=== PATIENT | female | born 1970 | race Caucasian/White ===

== ENCOUNTER → 2018-04-02 | Outpatient (CLI) | payer OTHER ==
[2018-04-02 12:51] LABS: CHOLESTEROL LEVEL 164 MG/DL (<200); CHOLESTEROL RISK RATIO 3.153 (<5); FREE T4 1.63 NG/DL (0.76-1.46); HDL CHOLESTEROL 52 MG/DL (>40); LDL CHOLESTEROL 86.8 MG/DL (<100); NON-HDL-C 112 MG/DL; THYROID STIMULATING HORMONE 0.421 uIU/ML (0.358-3.740); TRIGLYCERIDES LEVEL 126 MG/DL (<150)
== END ==
LOC: M WUC 08:02
DX: E03.9 Hypothyroidism, unspecified (principal)

== ENCOUNTER → 2018-07-09 | Outpatient (CLI) | payer OTHER | LOC: M SMT 14:07 | DX: S92.531A Displaced fracture of distal phalanx of right lesser toe(s), initial encounter for closed fracture (principal); J02.9 Acute pharyngitis, unspecified; X58.XXXA Exposure to other specified factors, initial encounter; Y92.9 Unspecified place or not applicable | CPT/HCPCS: 87077 ==

== ENCOUNTER → 2018-07-31 | Outpatient (REF) | LOC: M WHC 11:34 | DX: Z12.31 Encounter for screening mammogram for malignant neoplasm of breast (principal) ==

== ENCOUNTER → 2018-10-19 | Outpatient (CLI) | payer OTHER ==
[2018-10-19 14:38] LABS: THYROID STIMULATING HORMONE 0.061 uIU/ML (0.358-3.740)
[2018-10-19 14:38] LABS: FREE T4 1.64 NG/DL (0.76-1.46)
== END ==
LOC: M WUC 11:32
DX: E03.9 Hypothyroidism, unspecified (principal)
CPT/HCPCS: 84443

== ENCOUNTER → 2019-08-24 | Outpatient (REF) | payer BC | LOC: M LAB REF 16:58 | PROVIDERS: ATTEND Physician Assistant | DX: M54.5 Low back pain (principal) ==

== ENCOUNTER → 2019-09-20 | Outpatient (CLI) | payer BC ==
[2019-09-20 08:24] LABS: BASO % 0.6 % (0.0-1.0); EOS # 0.2 10^3/uL (0.0-0.5); EOS % 2.4 % (0.0-3.0); HEMATOCRIT 42.9 % (36.0-47.0); HEMOGLOBIN 13.6 g/dl (12.0-15.5); LYMPH # 1.9 10^3/uL (1.5-5.0); LYMPH % 30.1 % (24.0-44.0); MEAN CORPUSCULAR HEMOGLOBIN 30.6 pg (27.0-33.0); MEAN CORPUSCULAR HGB CONC 31.7 g/dl (32.0-36.5); MEAN CORPUSCULAR VOLUME 96.6 fl (80.0-96.0); MONO # 0.5 10^3/uL (0.0-0.8); MONO % 7.3 % (0.0-5.0); NEUTROPHILS # 3.8 10^3/uL (1.5-8.5); NEUTROPHILS % 59.3 % (36.0-66.0); PLATELET COUNT, AUTOMATED 134 10^3/uL (150-450); RED BLOOD COUNT 4.44 10^6/uL (4.00-5.40); WHITE BLOOD COUNT 6.3 10^3/uL (4.0-10.0)
[2019-09-20 09:05] LABS: ALBUMIN 3.5 GM/DL (3.2-5.2); ALT/SGPT 29 U/L (12-78); BILIRUBIN,TOTAL 0.6 MG/DL (0.2-1.0); BLOOD UREA NITROGEN 17 MG/DL (7-18); CARBON DIOXIDE LEVEL 26 MEQ/L (21-32); CHLORIDE LEVEL 109 MEQ/L (98-107); CHOLESTEROL LEVEL 182 MG/DL (<200); CHOLESTEROL RISK RATIO 2.303 (<5); CREATININE FOR GFR 0.98 MG/DL (0.55-1.30); FREE T4 1.15 NG/DL (0.76-1.46); GLOMERULAR FILTRATION RATE > 60.0 (>51); GLUCOSE, FASTING 92 MG/DL (70-100); HDL CHOLESTEROL 79 MG/DL (>40); LDL CHOLESTEROL 76 MG/DL (<100); NON-HDL-C 103 MG/DL; SODIUM LEVEL 142 MEQ/L (136-145); THYROID STIMULATING HORMONE 0.331 uIU/ML (0.358-3.740); TRIGLYCERIDES LEVEL 133 MG/DL (<150)
== END ==
LOC: M LAB 07:47
PROVIDERS: ATTEND Physician Assistant
DX: M54.5 Low back pain (principal)

== ENCOUNTER 2019-11-18 08:10 | Day surgery (SDC) | payer BC ==
[~2019-11-18] VITALS: Ht 160 cm; Wt 68.9 kg
[~2019-11-18 08:10] MED LIST changes: +LIDOCAINE 2% INJ 100 MG/5 ML SDV (FOR ANES.) As Ordered ONE; +NS 1,000 ML IV ONE; +PROPOFOL 200 MG/20 ML VIAL As Ordered ONE
[2019-11-18] MEDS ORDERED: PROPOFOL 200 MG/20 ML VIAL As Ordered ONE ×2 (09:33→09:45)
--- NOTE | 2019-11-18 10:00 | ROOR ---
Patient Name: Cristiana Sampson Procedure Date: 11/18/2019 9:24 AM Date of : 1970 Age: 49 Room: [facility] Gender: Female Note Status: Finalized Procedure: Colonoscopy Indications: Screening patient at increased risk: Family history of 1st-degree relative with colorectal cancer at age 60 years (or older) Providers: Edvin Proctor Jr, MD Referring MD: Martha NUNEZ DO Requesting Provider: Medicines: Propofol per Anesthesia Complications: No immediate complications. Procedure: Pre-Anesthesia Assessment: - Prior to the procedure, a History and Physical was performed, and patient medications and allergies were reviewed. The patient is competent. The risks and benefits of the procedure and the sedation options and risks were discussed with the patient. All questions were answered and informed consent was obtained. Patient identification and proposed procedure were verified by the physician and the nurse in the pre-procedure area and in the procedure room. Mental Status Examination: alert and oriented. Airway Examination: normal oropharyngeal airway and neck mobility. Respiratory Examination: clear to auscultation. CV Examination: normal. ASA Grade Assessment: II - A patient with mild systemic disease. After reviewing the risks and benefits, the patient was deemed in satisfactory condition to undergo the procedure. The anesthesia plan was to use moderate sedation / analgesia (conscious sedation). Immediately prior to administration of medications, the patient was re-assessed for adequacy to receive sedatives. The heart rate, respiratory rate, oxygen saturations, blood pressure, adequacy of pulmonary ventilation, and response to care were monitored throughout the procedure. The physical status of the patient was re-assessed after the procedure. The Colonoscope was introduced through the anus and advanced to the cecum, identified by appendiceal orifice and ileocecal valve. The colonoscopy was performed without difficulty. The patient tolerated the procedure well. The quality of the bowel preparation was adequate. Findings: The ascending colon, cecum, appendiceal orifice and ileocecal valve appeared normal. Four polyps were found in the rectum, descending colon and transverse colon. The polyps were diminutive in size. These polyps were removed with a hot snare. Resection was complete, but the polyp tissue was only partially retrieved. A small polyp was found in the sigmoid colon. The polyp was removed with a hot snare. Resection and retrieval were complete. Impression: - The ascending colon, cecum, appendiceal orifice and ileocecal valve are normal. - Four diminutive polyps in the rectum, in the descending colon and in the transverse colon, removed with a hot snare. Complete resection. Partial retrieval. - One small polyp in the sigmoid colon, removed with a hot snare. Resected and retrieved. Recommendation: - Discharge patient to home (ambulatory). - Repeat colonoscopy in 5 years for surveillance. Edvin Proctor MD Edvin Proctor Jr, MD 11/18/2019 10:00:08 AM Electronically signed by Edvin Proctor Jr, MD Number of Addenda: 0 Note Initiated On: 11/18/2019 9:24 AM Estimated Blood Loss: Estimated blood loss: none.
[2019-11-18 10:43] VITALS: BP 117/75
== END 2019-11-18 10:30 | disposition home or self-care (01) ==
LOC: M OPP 08:10
PROVIDERS: ATTEND Surgery
DX: Z12.11 Encounter for screening for malignant neoplasm of colon (principal); Z80.0 Family history of malignant neoplasm of digestive organs; K62.1 Rectal polyp; D12.4 Benign neoplasm of descending colon; D12.3 Benign neoplasm of transverse colon; D12.5 Benign neoplasm of sigmoid colon; F17.210 Nicotine dependence, cigarettes, uncomplicated; Z79.899 Other long term (current) drug therapy

== ENCOUNTER → 2019-11-18 | Outpatient (CLI) | payer BC ==
[~2019-11-18] MED LIST: ATOR40TA75 PO; CETI10TA4 PO; SYNT125T PO
--- NOTE | 2019-11-18 16:36 | REPMRS ---
Patient History The patient states she has not had a clinical breast exam in over a year. Family history of colorectal cancer at age 75 in father. Took estrogen for 10 years. Digital Woman Screen Mammo: November 18, 2019 - Exam #: [id number] Bilateral CC and MLO view(s) were taken. Technologist: Elsy Gilbert, Technologist Prior study comparison: July 31, 2018, bilateral digital woman screen mammo performed at [facility]. September 15, 2013, bilateral digital mammo screening bilat, performed at [place], [place]. September 09, 2012, bilateral digital mammo screening bilat, performed at [place], [place]. FINDINGS: There are scattered fibroglandular densities. There has been no change in the appearance of the mammogram from the prior studies. There is a mild amount of scattered fibroglandular density which is fairly symmetric. There is no interval development of dominant mass, architectural distortion, or grouped microcalcification suggestive of malignancy. 3-D tomosynthesis shows no additional findings. Assessment: BI-RADS/ACR category 1 mammogram. Negative Mammogram. Recommendation Routine screening mammogram of both breasts in 1 year (for women over age 40). This patient's Lifetime Breast Cancer Risk is estimated at 4.6 %. This mammogram was interpreted with the aid of an FDA-approved computer-aided dectection system. Electronically Signed By: Demarcus Estevez MD 11/18/19 2300
== END ==
LOC: M WHC 15:27
PROVIDERS: ATTEND Physician Assistant
DX: Z12.31 Encounter for screening mammogram for malignant neoplasm of breast (principal); Z80.0 Family history of malignant neoplasm of digestive organs

== ENCOUNTER → 2020-07-09 | Outpatient (CLI) | payer BC ==
[~2020-07-09] MED LIST changes: -LIDOCAINE 2% INJ 100 MG/5 ML SDV (FOR ANES.) As Ordered ONE; -NS 1,000 ML IV ONE; -PROPOFOL 200 MG/20 ML VIAL As Ordered ONE
--- NOTE | 2020-08-10 09:48 | REP ---
LEFT SHOULDER SERIES: 3-VIEWS HISTORY: Pain in the left shoulder. Injury from fall. FINDINGS: Three views of the left shoulder demonstrate normal alignment of the glenohumeral and acromioclavicular joints. No fracture or subluxation is seen. Periarticular soft tissues are unremarkable. IMPRESSION: No fracture noted. MTDD
--- NOTE | 2020-08-10 09:48 | REP ---
LEFT SCAPULA: 3-VIEWS HISTORY: Injury in a fall. FINDINGS: 3-views of the left scapula demonstrate normal alignment of the glenohumeral and acromioclavicular joints. The clavicle is intact. No scapular or clavicular fracture is seen. The periarticular soft tissues are unremarkable. IMPRESSION: No fracture noted. MTDD
== END ==
LOC: M WUC 09:27
PROVIDERS: ATTEND Nurse Practitioner Family
DX: M25.512 Pain in left shoulder (principal)

== ENCOUNTER → 2020-11-22 | Outpatient (CLI) | payer BC ==
--- NOTE | 2020-11-22 09:08 | REPMRS ---
Patient History The patient states she has not had a clinical breast exam in over a year. Family history of colorectal cancer at age 75 in father. Took estrogen for 10 years. 3D TOMOSYNTHESIS WAS PERFORMED. [facility]%. Volpara breast density b. Digital Woman Screen Mammo: November 22, 2020 - Exam #: [id number] Bilateral CC and MLO view(s) were taken. Technologist: Shantelle Robbins, Technologist Prior study comparison: November 18, 2019, bilateral digital woman screen mammo performed at [facility]. July 31, 2018, bilateral digital woman screen mammo performed at [facility]. FINDINGS: There are scattered fibroglandular densities. There has been no change in the appearance of the mammogram from the prior studies. There is a mild amount of residual fibroglandular tissue which is fairly symmetric. There is no interval development of dominant mass, architectural distortion, or clustered microcalcification suggestive of malignancy. Assessment: BI-RADS/ACR category 1 mammogram. Negative Mammogram. Recommendation Routine screening mammogram in 1 year (for women over age 40). This mammogram was interpreted with the aid of an FDA-approved computer-aided dectection system. Electronically Signed By: Edwin Kincaid MD 11/22/20 0908
== END ==
LOC: M WHC 06:07
PROVIDERS: ATTEND Family Medicine
DX: Z12.31 Encounter for screening mammogram for malignant neoplasm of breast (principal); Z80.0 Family history of malignant neoplasm of digestive organs

== ENCOUNTER → 2021-03-09 | Outpatient (CLI) | payer BC ==
--- NOTE | 2021-03-09 13:21 | REP ---
INDICATION: PAIN LT SHOULDER. COMPARISON: Comparison radiographs left shoulder 09 July 2020.. TECHNIQUE: Axial, oblique coronal, and oblique sagittal imaging planes utilized for T1 and T2 weighted scans. FINDINGS: There is mild subcortical cyst formation in the posterolateral humeral head. This is a finding which can be associated with impingement. There is joint fluid and some hypertrophy in the acromioclavicular joint. On oblique coronal T1 weighted scans there is increased signal intensity and some mild swelling in the distal supraspinatus consistent with tendinitis tendinosis. No focal full-thickness cuff tear is seen on T2 weighted scans. No glenohumeral joint effusion is seen. Cortical and medullary bone signal intensity is otherwise normal. Biceps tendon is in the bony bicipital groove and appears to be intact. There is no evidence of infraspinatus or subscapularis tendon tear. No anterior or posterior labral cartilage displacement is seen. The superior labrum cartilage appears intact. No juxta-articular cyst or mass is seen. IMPRESSION: Tendinitis tendinosis change in the supraspinatus tendon. AC joint hypertrophy and AC joint fluid. <Electronically signed by Demarcus Estevez > 03/09/21 4002
== END ==
LOC: M PLARAD 11:00
PROVIDERS: ATTEND Orthopaedic Surgery
DX: M25.512 Pain in left shoulder (principal); M67.814 Other specified disorders of tendon, left shoulder; M89.312 Hypertrophy of bone, left shoulder; M25.412 Effusion, left shoulder

== ENCOUNTER → 2021-11-07 | Outpatient (CLI) | payer BC ==
[2021-11-07 09:36] LABS: BASO % 0.6 % (0.0-1.0); EOS # 0.1 10^3/uL (0.0-0.5); EOS % 1.5 % (0.0-3.0); HEMATOCRIT 40.2 % (36.0-47.0); HEMOGLOBIN 13.1 g/dl (12.0-15.5); LYMPH % 29.6 % (24.0-44.0); MEAN CORPUSCULAR HEMOGLOBIN 31.1 pg (27.0-33.0); MEAN CORPUSCULAR HGB CONC 32.6 g/dl (32.0-36.5); MEAN CORPUSCULAR VOLUME 95.5 fl (80.0-96.0); MONO # 0.6 10^3/uL (0.0-0.8); MONO % 8.5 % (2.0-8.0); NEUTROPHILS # 4.1 10^3/uL (1.5-8.5); NEUTROPHILS % 59.5 % (36.0-66.0); PLATELET COUNT, AUTOMATED 125 10^3/uL (150-450); RED BLOOD COUNT 4.21 10^6/uL (4.00-5.40); WHITE BLOOD COUNT 6.8 10^3/uL (4.0-10.0)
[2021-11-07 10:07] LABS: ALBUMIN 3.3 GM/DL (3.2-5.2); ALT/SGPT 22 U/L (12-78); BILIRUBIN,TOTAL 0.5 MG/DL (0.2-1.0); BLOOD UREA NITROGEN 16 MG/DL (7-18); CARBON DIOXIDE LEVEL 28 MEQ/L (21-32); CHLORIDE LEVEL 108 MEQ/L (98-107); CHOLESTEROL LEVEL 194 MG/DL (<200); CHOLESTEROL RISK RATIO 2.939 (<5); FREE T4 1.17 NG/DL (0.76-1.46); GLOMERULAR FILTRATION RATE > 60.0 (>51); GLUCOSE, FASTING 87 MG/DL (70-100); HDL CHOLESTEROL 66 MG/DL (>40); LDL CHOLESTEROL 106 MG/DL (<100); NON-HDL-C 128 MG/DL; POTASSIUM SERUM 4.1 MEQ/L (3.5-5.1); SODIUM LEVEL 141 MEQ/L (136-145); THYROID STIMULATING HORMONE 0.748 uIU/ML (0.358-3.740); TOTAL PROTEIN 6.2 GM/DL (6.4-8.2); TRIGLYCERIDES LEVEL 108 MG/DL (<150)
== END ==
LOC: M LAB 08:38
PROVIDERS: ATTEND Family Medicine
DX: E03.9 Hypothyroidism, unspecified (principal); D69.6 Thrombocytopenia, unspecified

== ENCOUNTER → 2021-11-28 | Outpatient (REF) | LOC: M EMP 14:06 | PROVIDERS: ATTEND Family Medicine | DX: Z11.52 Encounter for screening for COVID-19 (principal) ==

== ENCOUNTER → 2022-08-20 | Outpatient (CLI) | payer BC | LOC: M RAD 11:12 | PROVIDERS: ATTEND Family Medicine | DX: R07.89 Other chest pain (principal); R05.2 Subacute cough ==

== ENCOUNTER → 2022-10-28 | Outpatient (CLI) | payer BC ==
[2022-10-28 09:18] LABS: BASO # 0.1 10^3/uL (0.0-0.2); BASO % 0.8 % (0.0-1.0); EOS # 0.1 10^3/uL (0.0-0.5); EOS % 0.9 % (0.0-3.0); HEMATOCRIT 42.1 % (36.0-47.0); HEMOGLOBIN 13.8 g/dl (12.0-15.5); LYMPH # 1.9 10^3/uL (1.5-5.0); LYMPH % 24.1 % (24.0-44.0); MEAN CORPUSCULAR HEMOGLOBIN 30.9 pg (27.0-33.0); MEAN CORPUSCULAR HGB CONC 32.8 g/dl (32.0-36.5); MEAN CORPUSCULAR VOLUME 94.4 fl (80.0-96.0); MONO # 0.5 10^3/uL (0.0-0.8); MONO % 6.5 % (2.0-8.0); NEUTROPHILS # 5.4 10^3/uL (1.5-8.5); NEUTROPHILS % 67.4 % (36.0-66.0); PLATELET COUNT, AUTOMATED 133 10^3/uL (150-450); RED BLOOD COUNT 4.46 10^6/uL (4.00-5.40)
[2022-10-28 09:41] LABS: ALBUMIN 3.7 G/DL (3.2-5.2); ALKALINE PHOSPHATASE 70 U/L (46-116); ALT/SGPT 17 U/L (7.0-40); AST/SGOT 17 U/L (<34); BILIRUBIN,TOTAL 0.7 MG/DL (0.3-1.2); BLOOD UREA NITROGEN 25 MG/DL (9-23); CARBON DIOXIDE LEVEL 26 MMOL/L (20-31); CHLORIDE LEVEL 108 MMOL/L (98-107); CHOLESTEROL LEVEL 205 MG/DL (<200); CHOLESTEROL RISK RATIO 2.74 (<5); CREATININE FOR GFR 0.81 MG/DL (0.55-1.30); GLOMERULAR FILTRATION RATE > 60.0 (>51); GLUCOSE, FASTING 106 MG/DL (60-100); HDL CHOLESTEROL 74.7 MG/DL (>40); LDL CHOLESTEROL 112.1 MG/DL (<100); NON-HDL-C 130 MG/DL; POTASSIUM SERUM 3.9 MMOL/L (3.5-5.1); SODIUM LEVEL 141 MMOL/L (136-145); TOTAL PROTEIN 6.7 G/DL (5.7-8.2); TRIGLYCERIDES LEVEL 91 MG/DL (<150)
[2022-10-28 09:45] LABS: FREE T4 1.28 NG/DL (0.89-1.76); THYROID STIMULATING HORMONE 2.553 uIU/ML (0.55-4.78); TOTAL 25(OH) VITAMIN D 44.3 NG/ML (20.0-100.0)
== END ==
LOC: M LAB 08:37
PROVIDERS: ATTEND Family Medicine
DX: E03.9 Hypothyroidism, unspecified (principal); E78.2 Mixed hyperlipidemia

== ENCOUNTER → 2022-11-05 | Outpatient (REF) | LOC: M EMP 10:06 | PROVIDERS: ATTEND Family Medicine | DX: Z11.52 Encounter for screening for COVID-19 (principal) ==

== ENCOUNTER → 2022-11-07 | Outpatient (REF) | LOC: M EMP 08:15 | PROVIDERS: ATTEND Family Medicine | DX: Z11.52 Encounter for screening for COVID-19 (principal) ==

== ENCOUNTER → 2023-02-24 | Outpatient (CLI) | payer BC | LOC: M WHC 07:32 | PROVIDERS: ATTEND Family Medicine | DX: Z12.31 Encounter for screening mammogram for malignant neoplasm of breast (principal) ==

== ENCOUNTER → 2023-07-22 | Outpatient (CLI) | payer BC ==
[2023-07-22 12:41] LABS: BASO % 0.6 % (0.0-1.0); HEMATOCRIT 43.1 % (36.0-47.0); HEMOGLOBIN 13.9 g/dl (12.0-15.5); LYMPH # 1.9 10^3/uL (1.5-5.0); LYMPH % 30.1 % (24.0-44.0); MEAN CORPUSCULAR HEMOGLOBIN 30.3 pg (27.0-33.0); MEAN CORPUSCULAR HGB CONC 32.3 g/dl (32.0-36.5); MEAN CORPUSCULAR VOLUME 94.1 fl (80.0-96.0); MONO # 0.4 10^3/uL (0.0-0.8); MONO % 6.7 % (2.0-8.0); NEUTROPHILS % 62.4 % (36.0-66.0); PLATELET COUNT, AUTOMATED 141 10^3/uL (150-450); RED BLOOD COUNT 4.58 10^6/uL (4.00-5.40); WHITE BLOOD COUNT 6.4 10^3/uL (4.0-10.0)
[2023-07-22 13:13] LABS: ALBUMIN 3.6 G/DL (3.2-5.2); ALKALINE PHOSPHATASE 91 U/L (46-116); ALT/SGPT 20 U/L (7.0-40); AST/SGOT 11 U/L (<34); BILIRUBIN,TOTAL 0.5 MG/DL (0.3-1.2); BLOOD UREA NITROGEN 21 MG/DL (9-23); CALCIUM LEVEL 8.8 MG/DL (8.5-10.1); CARBON DIOXIDE LEVEL 24 MMOL/L (20-31); CHLORIDE LEVEL 108 MMOL/L (98-107); CHOLESTEROL LEVEL 221 MG/DL (<200); CHOLESTEROL RISK RATIO 3.63 (<5); CREATININE FOR GFR 0.85 MG/DL (0.55-1.30); FREE T4 1.44 NG/DL (0.89-1.76); GLOMERULAR FILTRATION RATE > 60.0 (>51); GLUCOSE, FASTING 98 MG/DL (60-100); HDL CHOLESTEROL 60.8 MG/DL (>40); NON-HDL-C 160.2 MG/DL; SODIUM LEVEL 141 MMOL/L (136-145); THYROID STIMULATING HORMONE 0.363 uIU/ML (0.55-4.78); TOTAL PROTEIN 6.6 G/DL (5.7-8.2); TRIGLYCERIDES LEVEL 166 MG/DL (<150)
[2023-07-24 12:16] LABS: THYROID PEROXIDASE ANTIBODY < 28.0 U/ML (<60.0)
== END ==
LOC: M LAB 12:00
PROVIDERS: ATTEND Family Medicine
DX: E03.9 Hypothyroidism, unspecified (principal); E78.2 Mixed hyperlipidemia; R00.2 Palpitations

== ENCOUNTER → 2023-08-06 | Outpatient (CLI) | payer BC | LOC: M CARPUL 15:46 | PROVIDERS: ATTEND Family Medicine | DX: I48.0 Paroxysmal atrial fibrillation (principal); I08.3 Combined rheumatic disorders of mitral, aortic and tricuspid valves ==

== ENCOUNTER → 2023-11-24 | Outpatient (CLI) | payer BC ==
[2023-11-24 07:11] LABS: BASO % 0.5 % (0.0-1.0); HEMATOCRIT 40.1 % (36.0-47.0); HEMOGLOBIN 13.4 g/dl (12.0-15.5); MEAN CORPUSCULAR HEMOGLOBIN 30.9 pg (27.0-33.0); MEAN CORPUSCULAR HGB CONC 33.4 g/dl (32.0-36.5); MEAN CORPUSCULAR VOLUME 92.6 fl (80.0-96.0); MONO # 0.6 10^3/uL (0.0-0.8); MONO % 9.8 % (2.0-8.0); NEUTROPHILS % 53.5 % (36.0-66.0); PLATELET COUNT, AUTOMATED 130 10^3/uL (150-450); RED BLOOD COUNT 4.33 10^6/uL (4.00-5.40); WHITE BLOOD COUNT 5.6 10^3/uL (4.0-10.0)
[2023-11-24 07:35] LABS: ALBUMIN 3.5 G/DL (3.2-5.2); ALKALINE PHOSPHATASE 83 U/L (46-116); ALT/SGPT 24 U/L (7.0-40); AST/SGOT 17 U/L (<34); BILIRUBIN,TOTAL 0.6 MG/DL (0.3-1.2); BLOOD UREA NITROGEN 15 MG/DL (9-23); CALCIUM LEVEL 8.8 MG/DL (8.5-10.1); CARBON DIOXIDE LEVEL 26 MMOL/L (20-31); CHLORIDE LEVEL 109 MMOL/L (98-107); CHOLESTEROL LEVEL 202 MG/DL (<200); CHOLESTEROL RISK RATIO 3.48 (<5); CREATININE FOR GFR 0.86 MG/DL (0.55-1.30); GLOMERULAR FILTRATION RATE > 60.0 (>51); GLUCOSE, FASTING 100 MG/DL (60-100); LDL CHOLESTEROL 118.6 MG/DL (<100); POTASSIUM SERUM 3.9 MMOL/L (3.5-5.1); SODIUM LEVEL 142 MMOL/L (136-145); TOTAL PROTEIN 6.2 G/DL (5.7-8.2); TRIGLYCERIDES LEVEL 127 MG/DL (<150)
[2023-11-24 07:36] LABS: FREE T4 1.25 NG/DL (0.89-1.76)
[2023-11-24 07:37] LABS: THYROID STIMULATING HORMONE 2.822 uIU/ML (0.55-4.78)
== END ==
LOC: M LAB 06:14
PROVIDERS: ATTEND Family Medicine
DX: E03.9 Hypothyroidism, unspecified (principal); E78.2 Mixed hyperlipidemia

== ENCOUNTER → 2024-03-03 | Outpatient (CLI) | payer BC | LOC: M WHC 15:48 | PROVIDERS: ATTEND Family Medicine | DX: Z12.31 Encounter for screening mammogram for malignant neoplasm of breast (principal) ==

== ENCOUNTER → 2024-03-30 | Outpatient (CLI) | payer BC | LOC: M WHC 08:23 | PROVIDERS: ATTEND Family Medicine | DX: R92.8 Other abnormal and inconclusive findings on diagnostic imaging of breast (principal); N63.11 Unspecified lump in the right breast, upper outer quadrant; R92.311 Mammographic fatty tissue density, right breast | CPT/HCPCS: 77065; G0279 ==

== ENCOUNTER 2024-10-19 16:55 | Emergency (ER) | payer BC ==
[~2024-10-19] VITALS: Ht 160 cm; Wt 88.2 kg
[2024-10-19] MEDS ORDERED: LEVO100T5 (17:07)
[2024-10-19 17:09] VITALS: BP 170/100; TEMP 98.4; O2SAT 96
== END 2024-10-19 18:22 | disposition home or self-care (01) ==
LOC: M ED 16:55
DX: M71.22 Synovial cyst of popliteal space [Baker], left knee (principal); S83.92XA Sprain of unspecified site of left knee, initial encounter; W01.0XXA Fall on same level from slipping, tripping and stumbling without subsequent striking against object, initial encounter; Y92.89 Other specified places as the place of occurrence of the external cause; Y93.9 Activity, unspecified; Y99.9 Unspecified external cause status; E03.9 Hypothyroidism, unspecified; Z79.899 Other long term (current) drug therapy

== ENCOUNTER 2024-12-13 08:18 | Outpatient (RCR) | payer BC ==
[~2024-12-13 08:18] MED LIST changes: +LEVO100T5
== END 2024-12-17 ==
LOC: M PT 08:18
PROVIDERS: ATTEND Orthopaedic Surgery
DX: M25.562 Pain in left knee (principal)
CPT/HCPCS: 97110; 97140; 97162; G0283

== ENCOUNTER → 2024-12-15 | Outpatient (CLI) | payer BC | LOC: M RAD 08:23 | PROVIDERS: ATTEND Orthopaedic Surgery | DX: M25.562 Pain in left knee (principal); S83.282A Other tear of lateral meniscus, current injury, left knee, initial encounter; X58.XXXA Exposure to other specified factors, initial encounter; Y92.9 Unspecified place or not applicable; Y93.9 Activity, unspecified; Y99.9 Unspecified external cause status; M25.462 Effusion, left knee; M71.22 Synovial cyst of popliteal space [Baker], left knee ==

== ENCOUNTER → 2025-01-19 | Outpatient (CLI) | payer BC ==
[2025-01-19 08:32] LABS: BASO % 0.6 % (0.0-1.0); EOS % 0.7 % (0.0-3.0); HEMATOCRIT 39.8 % (36.0-47.0); HEMOGLOBIN 13.3 g/dl (12.0-15.5); LYMPH # 1.6 10^3/uL (1.5-5.0); LYMPH % 28.8 % (24.0-44.0); MEAN CORPUSCULAR HEMOGLOBIN 31.1 pg (27.0-33.0); MEAN CORPUSCULAR HGB CONC 33.4 g/dl (32.0-36.5); MEAN CORPUSCULAR VOLUME 93.2 fl (80.0-96.0); MONO # 0.5 10^3/uL (0.0-0.8); MONO % 9.4 % (2.0-8.0); NEUTROPHILS # 3.3 10^3/uL (1.5-8.5); NEUTROPHILS % 60.3 % (36.0-66.0); PLATELET COUNT, AUTOMATED 128 10^3/uL (150-450); RED BLOOD COUNT 4.27 10^6/uL (4.00-5.40); WHITE BLOOD COUNT 5.5 10^3/uL (4.0-10.0)
[2025-01-19 09:01] LABS: ALBUMIN 3.3 G/DL (3.2-5.2); ALKALINE PHOSPHATASE 97 U/L (35-104); ALT/SGPT 26 U/L (7.0-40); AST/SGOT 20 U/L (<34); BILIRUBIN,TOTAL 0.6 MG/DL (0.3-1.2); BLOOD UREA NITROGEN 15 MG/DL (9-23); CALCIUM LEVEL 8.9 MG/DL (8.5-10.1); CARBON DIOXIDE LEVEL 23 MMOL/L (20-31); CHLORIDE LEVEL 111 MMOL/L (98-107); CHOLESTEROL LEVEL 228 MG/DL (<200); CHOLESTEROL RISK RATIO 3.41 (<5); CREATININE FOR GFR 0.76 MG/DL (0.55-1.30); GLOMERULAR FILTRATION RATE > 60.0 (>51); GLUCOSE, FASTING 112 MG/DL (60-100); HDL CHOLESTEROL 66.8 MG/DL (>40); LDL CHOLESTEROL 135.4 MG/DL (<100); NON-HDL-C 161.2 MG/DL; POTASSIUM SERUM 4.2 MMOL/L (3.5-5.1); SODIUM LEVEL 144 MMOL/L (136-145); TOTAL PROTEIN 6.6 G/DL (5.7-8.2); TRIGLYCERIDES LEVEL 129 MG/DL (<150)
[2025-01-19 09:02] LABS: THYROID STIMULATING HORMONE 4.139 uIU/ML (0.55-4.78)
== END ==
LOC: M LAB 07:33
PROVIDERS: ATTEND Family Medicine
DX: E03.9 Hypothyroidism, unspecified (principal); E78.2 Mixed hyperlipidemia

== ENCOUNTER 2025-02-17 06:52 | Day surgery (SDC) | payer BC ==
[~2025-02-17] VITALS: Ht 160 cm; Wt 84.2 kg
[~2025-02-17 06:52] MED LIST changes: +CRES40TA PO; -LEVO100T5; +LEVO100T5 PO; +THERTAB52 PO
[2025-02-17] MEDS ORDERED: propofoL 200 MG/20 ML VIAL As Ordered ONE (06:54)
[2025-02-17] MEDS ORDERED: LIDOCAINE 2% 100MG/5ML SDV (FOR ANES.) As Ordered ONE (06:54)
[2025-02-17] MEDS ORDERED: fentaNYL 100 MCG/2 ML INJECTION As Ordered ONE (07:37)
[2025-02-17 08:08] VITALS: TEMP 98.2
[2025-02-17 08:25] VITALS: BP 136/82; O2SAT 96
== END 2025-02-17 08:28 | disposition home or self-care (01) ==
LOC: M OPP 06:52
PROVIDERS: ATTEND Surgery
DX: D12.6 Benign neoplasm of colon, unspecified (principal); Z86.0100 Personal history of colon polyps, unspecified; K22.89 Other specified disease of esophagus; K31.89 Other diseases of stomach and duodenum; Z80.0 Family history of malignant neoplasm of digestive organs; Z79.899 Other long term (current) drug therapy
CPT/HCPCS: 43239; 45385; 88305; J3010

== ENCOUNTER → 2025-02-21 | Outpatient (CLI) | payer BC | LOC: M RAD 13:36 | PROVIDERS: ATTEND Family Medicine | DX: Z12.2 Encounter for screening for malignant neoplasm of respiratory organs (principal); Z87.891 Personal history of nicotine dependence; I70.0 Atherosclerosis of aorta; I25.10 Atherosclerotic heart disease of native coronary artery without angina pectoris ==

== ENCOUNTER → 2025-03-04 | Outpatient (CLI) | payer BC | LOC: M WHC 06:56 | PROVIDERS: ATTEND Family Medicine | DX: Z12.31 Encounter for screening mammogram for malignant neoplasm of breast (principal) ==